=== PATIENT | female | born 1950 | race Caucasian/White ===

== ENCOUNTER → 2016-08-31 | Day surgery (SDC) | payer OTHER | LOC: MSO 09:20 | DX: Z12.11 Encounter for screening for malignant neoplasm of colon (principal); K63.5 Polyp of colon; K57.30 Diverticulosis of large intestine without perforation or abscess without bleeding; K21.9 Gastro-esophageal reflux disease without esophagitis; I10 Essential (primary) hypertension; Z87.891 Personal history of nicotine dependence; G47.33 Obstructive sleep apnea (adult) (pediatric); R73.03 Prediabetes; E78.00 Pure hypercholesterolemia, unspecified; G25.81 Restless legs syndrome; C67.9 Malignant neoplasm of bladder, unspecified | CPT/HCPCS: 00810; J3010; J7030 ==

== ENCOUNTER 2018-02-03 12:47 | Emergency (ER) | payer MEDICARE, OTHER ==
[~2018-02-03] VITALS: Ht 160 cm; Wt 81.8 kg
[2018-02-03] MEDS ORDERED: GLUCOPHAGE PO (12:55)
[2018-02-03] MEDS ORDERED: CETIRIZINE HCL10 MG PO (12:55)
[2018-02-03] MEDS ORDERED: LISINOPRIL10 MG PO (12:55)
[2018-02-03] MEDS ORDERED: ROPINIROLE HCL1 MG PO (12:55)
[2018-02-03] MEDS ORDERED: NATURAL E400 IU (12:55)
[2018-02-03] MEDS ORDERED: ATORVASTATIN CA40 MG PO (12:56)
[2018-02-03] MEDS ORDERED: ZOLOFT25 M1 PO (12:56)
[2018-02-03 14:20] VITALS: BP 159/92
== END 2018-02-03 14:17 | disposition home or self-care (01) ==
LOC: ED 12:47
DX: S61.412A Laceration without foreign body of left hand, initial encounter (principal); W26.0XXA Contact with knife, initial encounter; Y92.009 Unspecified place in unspecified non-institutional (private) residence as the place of occurrence of the external cause; I10 Essential (primary) hypertension; E11.9 Type 2 diabetes mellitus without complications; Z79.84 Long term (current) use of oral hypoglycemic drugs

== ENCOUNTER → 2019-12-05 | Day surgery (SDC) | payer MEDICARE, OTHER ==
[~2019-12-05] MED LIST: ATORVASTATIN CA40 MG PO; CETIRIZINE HCL10 MG PO; GLUCOPHAGE PO; LISINOPRIL10 MG PO; NATURAL E400 IU; ROPINIROLE HCL1 MG PO; ZOLOFT25 M1 PO
== END ==
LOC: MSO 11:10
DX: E11.36 Type 2 diabetes mellitus with diabetic cataract (principal); H25.12 Age-related nuclear cataract, left eye; E78.00 Pure hypercholesterolemia, unspecified; I10 Essential (primary) hypertension; Z90.49 Acquired absence of other specified parts of digestive tract; Z90.710 Acquired absence of both cervix and uterus; Z79.82 Long term (current) use of aspirin; Z79.84 Long term (current) use of oral hypoglycemic drugs; Z88.0 Allergy status to penicillin; Z88.2 Allergy status to sulfonamides; G47.33 Obstructive sleep apnea (adult) (pediatric); K21.9 Gastro-esophageal reflux disease without esophagitis; F32.9 Major depressive disorder, single episode, unspecified; G25.81 Restless legs syndrome
CPT/HCPCS: 00142; J0171; J2250; J3010; V2632

== ENCOUNTER 2021-02-08 12:55 | Emergency (ER) | payer MEDICARE, OTHER ==
[2021-02-08] MEDS ORDERED: CLEOCIN HCL150 M1 PO (13:07)
[2021-02-08] MEDS ORDERED: PRILOSEC OTC20 MG PO (13:07)
[2021-02-08] MEDS ORDERED: JANUVIA 100MG100 MG (13:07)
[2021-02-08 14:00] LABS: HEMATOCRIT 43.9 % (37.0-47.0); HEMOGLOBIN 14.8 g/dL (12.5-16.0); MEAN CELL VOLUME 86 fl (78-100); MEAN CORPUSCULAR HEMOGLOBIN 29 pg (27-31); MEAN CORPUSCULAR HGB CONC 34 g/dL (33-37); MEAN PLATELET VOLUME 10.6 fl (7.4-10.4); PLATELET COUNT 269 K/mm3 (130-400); RED BLOOD COUNT 5.11 M/mm3 (4.10-5.30); RED CELL DISTRIBUTION WIDTH 12.9 % (11.5-14.5); WHITE BLOOD COUNT 14.6 K/mm3 (4.8-10.8)
[2021-02-08 14:09] LABS: ALBUMIN 4.1 g/dL (3.4-4.8); POTASSIUM 3.6 mmol/L (3.5-5.1)
[2021-02-08 14:11] LABS: CALCIUM 9.9 mg/dL (8.3-10.5)
[2021-02-08 14:12] LABS: TOTAL PROTEIN 7.4 g/dL (6.2-8.1)
[2021-02-08 14:14] LABS: TOTAL BILIRUBIN 1.1 mg/dL (0.2-1.2)
[2021-02-08 14:24] LABS: TROPONIN-I 0.17 ng/mL (<0.030)
[2021-02-08 14:40] LABS: LYMPHOCYTE 4 % (20-51); MONOCYTE 3 % (3-10); NEUTROPHILS 93 % (42-75)
[2021-02-08 15:18] LABS: URINE APPEARANCE HAZY; URINE COLOR YELLOW; URINE PROTEIN(semi-quant) 3+ mg/dL (NEGATIVE)
[2021-02-08 15:19] LABS: URINE BILIRUBIN NEGATIVE (NEGATIVE); URINE BLOOD 250 ery/uL (NEGATIVE); URINE GLUCOSE NEGATIVE (NEGATIVE); URINE KETONE NEGATIVE (NEGATIVE); URINE LEUKOCYTE ESTERASE 2+ (NEGATIVE); URINE MUCUS PRESENT (NOT PRESENT); URINE NITRATE NEGATIVE (NEGATIVE); URINE UROBILINOGEN NORMAL (NORMAL); URINE WBC 31-50 /hpf (0-3)
[2021-02-08 16:15] LABS: D-DIMER 2.25 mg/L FEU (0.15-0.50)
[2021-02-08 19:20] VITALS: BP 135/71
== END 2021-02-08 19:20 | disposition short-term general hospital (02) ==
LOC: ED 12:55
PROVIDERS: Family Medicine
DX: N39.0 Urinary tract infection, site not specified (principal); R79.89 Other specified abnormal findings of blood chemistry; R55 Syncope and collapse; I10 Essential (primary) hypertension; E78.5 Hyperlipidemia, unspecified; E11.9 Type 2 diabetes mellitus without complications; Z88.0 Allergy status to penicillin; Z20.822 Contact with and (suspected) exposure to COVID-19; Z88.2 Allergy status to sulfonamides; Z88.1 Allergy status to other antibiotic agents; Z79.899 Other long term (current) drug therapy; Z79.84 Long term (current) use of oral hypoglycemic drugs
CPT/HCPCS: J0696; J7030; Q9967

== ENCOUNTER → 2021-07-15 | Outpatient (CLI) | payer MEDICARE, OTHER ==
[~2021-07-15] MED LIST changes: +CLEOCIN HCL150 M1 PO; +JANUVIA 100MG100 MG; +PRILOSEC OTC20 MG PO
== END ==
LOC: RAD 09:00
DX: M16.11 Unilateral primary osteoarthritis, right hip (principal)

== ENCOUNTER 2021-08-06 09:54 | Outpatient (RCR) | payer MEDICARE, OTHER | END 2021-08-11 | disposition home or self-care (01) | LOC: PT | DX: M25.551 Pain in right hip (principal) ==

== ENCOUNTER 2021-08-20 08:00 | Outpatient (RCR) | payer MEDICARE, OTHER | END 2021-09-10 | disposition home or self-care (01) | LOC: PT | DX: M25.551 Pain in right hip (principal) ==

== ENCOUNTER 2021-09-17 10:30 | Outpatient (RCR) | payer MEDICARE, OTHER | END 2021-10-11 | disposition home or self-care (01) | LOC: PT | DX: M25.551 Pain in right hip (principal) ==

== ENCOUNTER 2021-10-12 08:00 | Outpatient (RCR) | payer MEDICARE, OTHER | END 2021-11-03 15:48 | disposition home or self-care (01) | LOC: PT 08:00 | DX: M25.551 Pain in right hip (principal) ==

== ENCOUNTER 2023-04-28 09:00 | Outpatient (RCR) | payer MEDICARE, OTHER | END 2023-05-12 | LOC: PT | DX: M70.61 Trochanteric bursitis, right hip (principal) ==

== ENCOUNTER → 2023-05-16 | Outpatient (CLI) | payer MEDICARE, OTHER | LOC: RAD 09:21 | DX: M79.604 Pain in right leg (principal) ==

== ENCOUNTER → 2023-06-03 | Outpatient (CLI) | payer MEDICARE, OTHER | LOC: RAD 13:36 | DX: M43.17 Spondylolisthesis, lumbosacral region (principal); M47.816 Spondylosis without myelopathy or radiculopathy, lumbar region; I70.0 Atherosclerosis of aorta ==

== ENCOUNTER 2023-10-27 17:18 | Emergency (ER) | payer MEDICARE, OTHER ==
[~2023-10-27] VITALS: Ht 160 cm; Wt 99.2 kg
[2023-10-27] MEDS ORDERED: OZEMPIC1 MG/0.71 SQ (18:13)
[2023-10-27] MEDS ORDERED: AMLODIPINE BESYL5 MG PO (18:14)
[2023-10-27] MEDS ORDERED: NEURIVA PLUS B1 EACH PO (18:15)
[2023-10-27] MEDS ORDERED: ROPINIROLE HYDRO2 MG PO (18:15)
[2023-10-27 19:10] VITALS: BP 170/82
== END 2023-10-27 19:10 | disposition home or self-care (01) ==
LOC: ED 17:18
DX: S61.212A Laceration without foreign body of right middle finger without damage to nail, initial encounter (principal); W26.0XXA Contact with knife, initial encounter

== ENCOUNTER → 2024-04-23 | Outpatient (CLI) | payer MEDICARE, OTHER ==
[~2024-04-23] MED LIST changes: +AMLODIPINE BESYL5 MG PO; +NEURIVA PLUS B1 EACH PO; +OZEMPIC1 MG/0.71 SQ; +ROPINIROLE HYDRO2 MG PO
== END ==
LOC: MAMMO 09:17
DX: Z12.31 Encounter for screening mammogram for malignant neoplasm of breast (principal)

== ENCOUNTER → 2024-04-23 | Outpatient (CLI) | payer MEDICARE, OTHER | LOC: MAMMO 09:00 → RAD 09:08 | DX: Z13.820 Encounter for screening for osteoporosis (principal); M85.851 Other specified disorders of bone density and structure, right thigh; M85.852 Other specified disorders of bone density and structure, left thigh ==